=== PATIENT | male | born 1940 | race Caucasian/White ===

== ENCOUNTER 2022-08-07 19:01 | Inpatient (IN) | payer MEDICARE ==
[2022-08-07] MEDS: Sodium Chloride 0.9% 1,000 ML IV SCH (20:12)
[2022-08-07 21:22] VITALS: BMI 24.6
[2022-08-07] MEDS ORDERED: Carvedilol 6.25 MG TAB PO SCH (22:00)
[2022-08-07 22:29] LABS: Magnesium 1.9 mg/dL (1.6-2.6)
[2022-08-07 22:36] LABS: Troponin I 0.013 ng/mL (< 0.028)
[2022-08-08 06:20] LABS: #Eosinphils 0.3 10x3/uL (0.0-0.5); #Monocytes 0.6 10x3/uL (0.0-1.1); #Neutrophils 3.4 10x3/uL (1.5-8.4); %Basophils 0.5 % (0.0-2.0); %Eosinophils 6.1 % (0.0-6.0); %Lymphocytes 22.5 % (18.0-47.0); %Monocytes 9.8 % (0.0-10.0); %Neutrophils 60.7 % (40.0-75.0); Hemoglobin 12.2 g/dL (13.5-17.5); Mean Corpuscular HGB CONC 34.8 g/dL (32.0-36.0); Mean Corpuscular Hemoglobin 32.7 pg (27.0-33.0); Mean Corpuscular Volume 94.1 fl (81.2-95.1); Mean Platelet Volume 10.5 fl (7.4-10.4); Platelet Count 197 10x3/uL (150-450); Red Blood Cell (RBC) Count 3.73 10x6/uL (4.32-5.72); White Blood Cell (WBC) Count 5.6 10x3/uL (3.5-10.5)
[2022-08-08 06:43] LABS: Anion Gap 12 mmol/L (10-20); BUN (Urea Nitrogen) 18 mg/dL (8.4-25.7); Calc. Creatinine Clearance 65 mL/min (70-130); Calcium 8.9 mg/dL (7.8-10.44); Carbon Dioxide 27 mmol/L (23-31); Chloride 102 mmol/L (98-107); Cholesterol 179 mg/dl (< 200 Desired); Estimated GFR 69; Glucose 95 mg/dL (83-110); HDL Cholesterol 45 mg/dL (>60 Neg Risk); LDL Cholesterol, Calculated 119 mg/dL; Potassium 3.2 mmol/L (3.5-5.1); Sodium 138 mmol/L (136-145); Triglycerides 73 mg/dL (Less than 150)
[2022-08-08] MEDS: Aspirin 81 mg Enteric Coated Tablet PO SCH (08:29)
[2022-08-08] MEDS: Carvedilol 6.25 MG TAB PO SCH ×2 (08:29→17:48)
[2022-08-08] MEDS: Gabapentin 300 MG CAP PO SCH ×3 (08:29→20:08)
[2022-08-08] MEDS: Amlodipine 5 MG TAB PO SCH (08:30)
[2022-08-08] MEDS ORDERED: Magnevist 469MG/ML 20 ML VIAL ONE (08:31)
[2022-08-08] MEDS ORDERED: Apixaban 5 MG TAB PO SCH (13:00)
[2022-08-08] MEDS: Apixaban 5 MG TAB PO SCH ×2 (13:20→17:48)
[2022-08-08] MEDS: Sodium Chloride 0.9% 1,000 ML IV SCH (16:14)
[2022-08-08] MEDS ORDERED: Atorvastatin Calcium 40 MG TAB PO SCH (21:00)
[2022-08-09] MEDS: Apixaban 5 MG TAB PO SCH (05:51)
[2022-08-09 06:18] LABS: #Basophils 0.1 10x3/uL (0.0-0.2); #Eosinphils 0.4 10x3/uL (0.0-0.5); #Monocytes 0.5 10x3/uL (0.0-1.1); #Neutrophils 3.1 10x3/uL (1.5-8.4); %Basophils 0.9 % (0.0-2.0); %Eosinophils 7.4 % (0.0-6.0); %Monocytes 9.4 % (0.0-10.0); %Neutrophils 56.9 % (40.0-75.0); Mean Corpuscular HGB CONC 34.8 g/dL (32.0-36.0); Mean Corpuscular Hemoglobin 32.4 pg (27.0-33.0); Mean Corpuscular Volume 93.3 fl (81.2-95.1); Mean Platelet Volume 10.4 fl (7.4-10.4); Platelet Count 192 10x3/uL (150-450); Red Blood Cell (RBC) Count 4.01 10x6/uL (4.32-5.72); White Blood Cell (WBC) Count 5.5 10x3/uL (3.5-10.5)
[2022-08-09 06:25] LABS: Anion Gap 12 mmol/L (10-20); BUN (Urea Nitrogen) 15 mg/dL (8.4-25.7); Calc. Creatinine Clearance 64 mL/min (70-130); Calcium 9.3 mg/dL (7.8-10.44); Carbon Dioxide 27 mmol/L (23-31); Chloride 103 mmol/L (98-107); Estimated GFR 68; Glucose 92 mg/dL (83-110); Potassium 3.4 mmol/L (3.5-5.1); Sodium 139 mmol/L (136-145)
[2022-08-09 06:48] LABS: Syphilis Antibody Nonreactive (Nonreactive); Syphilis Antibody Index 0.06 S/CO (<1.00 Non-Reactive)
[2022-08-09] MEDS ORDERED: Magnesium 2 GM/50 ML(in water) 2 GM in Premix Bag 1 BAG IVPB SCH (08:30)
[2022-08-09] MEDS ORDERED: Potassium Chloride 20 MEQ TAB PO SCH (08:30)
[2022-08-09] MEDS: Gabapentin 300 MG CAP PO SCH (09:58)
[2022-08-09] MEDS: Amlodipine 5 MG TAB PO SCH (09:59)
[2022-08-09] MEDS: Carvedilol 6.25 MG TAB PO SCH (09:59)
[2022-08-09] MEDS: Aspirin 81 mg Enteric Coated Tablet PO SCH (09:59)
[2022-08-09 12:34] LABS: Hemoglobin A1c 4.9 % (4.0-6.0)
[2022-08-09 14:14] VITALS: BP 154/99; TEMP 97.6
== END 2022-08-09 14:50 | disposition home or self-care (01) | DRG 66 ==
LOC: CSHTELE 19:01
PROVIDERS: ADMIT Hospitalist; ATTEND Hospitalist
DX: I63.9 Cerebral infarction, unspecified (principal); I67.1 Cerebral aneurysm, nonruptured; I10 Essential (primary) hypertension; E78.5 Hyperlipidemia, unspecified; F17.210 Nicotine dependence, cigarettes, uncomplicated; I48.91 Unspecified atrial fibrillation; R47.1 Dysarthria and anarthria; R13.12 Dysphagia, oropharyngeal phase; I35.0 Nonrheumatic aortic (valve) stenosis; I49.5 Sick sinus syndrome; Z79.82 Long term (current) use of aspirin; Z79.899 Other long term (current) drug therapy; Z90.49 Acquired absence of other specified parts of digestive tract; Z86.73 Personal history of transient ischemic attack (TIA), and cerebral infarction without residual deficits; Z98.890 Other specified postprocedural states
CPT/HCPCS: 36415; 70553; 80048; 80061; 83036; 83090; 83735; 84443; 85025; 85652; 86780; 93005; 93010; A9579; J1650; J3475; J7050

== ENCOUNTER 2022-08-10 17:33 | Emergency (ER) | payer MEDICARE | END 2022-08-10 23:20 | LOC: CSHERS 17:33 | DX: I63.9 Cerebral infarction, unspecified (principal); I10 Essential (primary) hypertension; F17.290 Nicotine dependence, other tobacco product, uncomplicated | CPT/HCPCS: 70450 ==